=== PATIENT | female | born 1970 | race Caucasian/White ===

== ENCOUNTER 2020-12-09 17:44 | Emergency (ER) | payer MEDICARE ==
[~2020-12-09] VITALS: Ht 170.2 cm; Wt 68.0 kg
[2020-12-09 18:38] VITALS: BP 118/68
== END 2020-12-09 20:30 | disposition home or self-care (01) ==
LOC: ED 17:44
PROC: 0HQFXZZ Repair Right Hand Skin, External Approach (ICD-10-PCS; principal; 2020-12-09)
DX: S61.212A Laceration without foreign body of right middle finger without damage to nail, initial encounter (principal); W29.0XXA Contact with powered kitchen appliance, initial encounter; Y93.G1 Activity, food preparation and clean up; Y92.000 Kitchen of unspecified non-institutional (private) residence as the place of occurrence of the external cause